=== PATIENT | male | born 1965 | race Caucasian/White ===

== ENCOUNTER 2022-09-26 10:03 | Emergency (ER) | payer BC, SELFPAY ==
[2022-09-26] VITALS (15 sets, daily range): BP systolic 169–202; BP diastolic 97–111; PULSE 70–95; RESP 18–20; TEMP 36.8; O2SAT 90–95; BMI 28.5
--- NOTE | 2022-09-26 11:07 | CRLHL7_ITS ---
For Patients: As a result of the Century Cures Act, medical imaging exams and procedure reports are released immediately into your electronic medical record. You may view this report before your referring provider. If you have questions, please contact your health care provider. INDICATION: Cough TECHNIQUE: Chest 1 view COMPARISON: CT chest 01/01/2017 FINDINGS: The cardiac silhouette is enlarged. No pneumothorax is present. No pleural effusion. Mild degenerative changes. Mild ill-defined densities are present within the left midlung zone and left lung base. The left hemidiaphragm is elevated. IMPRESSION: Elevated left hemidiaphragm, new from the prior study. Mild ill-defined densities within the left midlung zone and left lung base suggesting infiltrates. Dictated by Pablo Vale MD @ 09/26/2022 12:00:39 PM (Electronically Signed)
--- NOTE | 2022-09-26 11:12 | ED_ITS ---
HPI - General Adult General Time Seen by Provider: 11:13 Date Seen: 09/26/22 Chief complaint: Chest Pain Stated complaint: Tightness in chest Time Seen by Provider: 09/26/22 10:30 Source: patient Mode of arrival: ambulatory Limitations: no limitations History of Present Illness HPI narrative: Patient is a 56 year white male with a high calcium score, he has had a cold and cough for the last few days, he feels some intermittent chest tightness at night and cough at night. He feels pretty well during the day. 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 there was noted a year so ago. He has had no fevers chills no bleeding or clotting problems. He has had a cough at night as mention and he has had some respiratory congestion. He has not been tested for COVID or RSV or influenza recently.. No leg swelling or edema no travel Related Data Home Medications Medication Instructions Recorded Confirmed atenolol 50 mg tablet mg 09/26/22 atorvastatin 10 mg tablet mg 09/26/22 azelastine 137 mcg (0.1 %) nasal intranasal 09/26/22 spray aerosol escitalopram oxalate 10 mg tablet mg 09/26/22 fluticasone propionate 50 intranasal 09/26/22 mcg/actuation nasal spray,suspension Previous Rx's Medication Instructions Recorded azithromycin 500 mg tablet 500 mg PO DAILY 7 days #7 tabs 09/26/22 (Zithromax) prednisone 20 mg tablet 20 mg PO BID #10 tabs 09/26/22 Allergies Allergy/AdvReac Type Severity Reaction Status Date / Time penicillin G Allergy Unknown Verified 09/26/22 10:13 Review of Systems Status of ROS: Reports: 6 or more systems reviewed and unremarkable except as noted in History and below [facility] Social History Smoking Status: Current every day smoker What tobacco products do you use: cigarettes Smoking packs per day: 0.5 Smoking cigarettes per day: 10.0 Years smoked: 23 Smoking pack-years: 11.50 Do you use any of these nicotine containing products: None Second hand tobacco smoke exposure: Yes How often do you have a drink containing alcohol: 2-3 times a week How many standard drinks containing alcohol do you have on a typical day: 3 or 4 How often do you have six or more drinks on one occasion: Monthly AUDIT-C Alcohol total score: 6 Non-prescribed substance use: denies use service: No Exam Narrative: Exam Narrative: Objective: Patient's vital signs show elevated blood pressure, he is alert orient x3 very pleasant HEENT is unremarkable Neck is supple Chest clear superiorly but inferiorly at the bases he has some wheezing Heart rhythm regular 2/6 systolic murmur Abdomen soft nontender no masses Extremities are no edema Neurologic nonfocal Skin periphery warm and dry Const: Vital Signs, click to edit/add: Vital Signs - 24 hr 09/26/22 10:07 09/26/22 10:35 09/26/22 11:01 Temperature 98.3 F Pulse Rate 78 Pulse Rate [Right Pulse Oximeter] 95 85 Respiratory Rate 18 20 Blood Pressure Blood Pressure [Ri ght Upper Arm] 202/107 H 182/111 H Pulse Oximetry 95 95 91 Oxygen Delivery Me thod Room Air Room Air 09/26/22 11:02 09/26/22 11:15 09/26/22 11:30 Temperature Pulse Rate 86 80 80 Pulse Rate [Right Pulse Oximeter] Respiratory Rate Blood Pressure 169/97 H Blood Pressure [Ri ght Upper Arm] Pulse Oximetry 91 90 90 Oxygen Delivery Me thod 09/26/22 11:32 09/26/22 11:45 09/26/22 12:00 Temperature Pulse Rate 79 79 76 Pulse Rate [Right Pulse Oximeter] Respiratory Rate Blood Pressure 178/101 H Blood Pressure [Ri ght Upper Arm] Pulse Oximetry 91 94 93 Oxygen Delivery Me thod 09/26/22 12:02 09/26/22 12:15 09/26/22 12:30 Temperature Pulse Rate 73 74 70 Pulse Rate [Right Pulse Oximeter] Respiratory Rate Blood Pressure 170/99 H Blood Pressure [Ri ght Upper Arm] Pulse Oximetry 92 90 92 Oxygen Delivery Me thod 09/26/22 12:32 09/26/22 12:45 09/26/22 13:00 Temperature Pulse Rate 76 71 74 Pulse Rate [Right Pulse Oximeter] Respiratory Rate Blood Pressure 173/100 H Blood Pressure [Ri ght Upper Arm] Pulse Oximetry 94 91 94 Oxygen Delivery Me thod Course Vital Signs Vital signs: Initial Vital Signs Temperature 98.3 F 09/26/22 10:07 Temperature Source Temporal Artery Scan 09/26/22 10:07 Pulse Rate 95 09/26/22 10:07 Pulse Rhythm 09/26/22 10:07 Respiratory Rate 18 09/26/22 10:07 Blood Pressure 202/107 H 09/26/22 10:07 Blood Pressure Mean 138 09/26/22 10:07 Blood Pressure Position Sitting 09/26/22 10:07 Pulse Oximetry 95 09/26/22 10:07 Oxygen Delivery Method 09/26/22 10:07 Vital Signs Temperature 98.3 F 09/26/22 10:07 Pulse Rate 95 09/26/22 10:07 Respiratory Rate 18 09/26/22 10:07 Blood Pressure 202/107 H 09/26/22 10:07 Pulse Oximetry 95 09/26/22 10:07 Oxygen Delivery Method 09/26/22 10:07 Temperature 98.3 F 09/26/22 10:07 Pulse Rate 74 09/26/22 13:00 Respiratory Rate 20 09/26/22 10:35 Blood Pressure 173/100 H 09/26/22 12:32 Pulse Oximetry 94 09/26/22 13:00 Oxygen Delivery Method 09/26/22 10:35 Medical Decision Making MDM Narrative Medical decision making narrative: Patient is a 56 year white male with a viral type upper respiratory infection symptom, but with some chest tightness at night and cough. I would recommend we check COVID/influenza/RSV, labs, EKGs x2, troponin x2, oximetry and air conditioning unit assembler. Patient comfortable assessment and plan disposition pending findings above. At this point will give the patient aspirin, IV Solu-Medrol Patient does have some infiltrates on his chest x-ray by my review consistent with mild pneumonia, will give him Zithromax, his QT is normal and his EKG he has got a normal sinus rhythm EKG by my read, will give him Zithromax for home 500 mg daily for 5 days, rest light activity fluids, return as needed, update his regular doctor in the next couple of days as needed. If his 2nd troponin is negative he will be discharged home Lab Data Labs: Lab Results 09/26/22 09/26/22 09/26/22 Range/Units 10:35 10:37 10:37 WBC 7.50 (4.50-11.00) K/uL RBC 4.05 L (4.30-5.90) m/uL Hgb 14.1 (13.5-17.5) gm/dL Hct 42.0 (37.0-53.0) % MCV 104 H (80-100) fL MCH 35 H (26-34) pg MCHC 34 (32-36) gm/dL RDW Coeff of Torrey 12.3 (11.5-15.5) % Plt Count 220 (140-440) K/uL Neut % (Auto) 73.3 H (42.0-72.0) % Lymph % (Auto) 15.6 L (20-44) % [place] % (Auto) 7.9 (0.0-11.0) % Eos % (Auto) 2.3 (0.0-7.0) % Baso % (Auto) 0.5 (0.0-3.0) % Neut # (Auto) 5.50 (1.7-7.0) K/uL Lymph # (Auto) 1.20 (0.90-2.90) K/uL [place] # (Auto) 0.60 (0.00-0.90) K/UL Eos # (Auto) 0.17 (0.00-0.50) K/uL Baso # (Auto) 0.04 (0.00-0.30) K/uL Diff Slide Review Acceptable Review (Acceptable) Sodium (135-149) mmol/L Potassium (3.6-5.1) mmol/L Chloride (96-114) mmol/L Carbon Dioxide (20-32) mmol/L BUN (7-30) mg/dL Creatinine (0.5-1.5) mg/dL Estimated Creat Clear Estimated GFR ml/min Glucose (60-115) mg/dL Calcium (8.4-10.6) mg/dL Total Bilirubin (0.1-1.5) mg/dL Direct Bilirubin (0.0-0.5) mg/dL AST (12-35) U/L ALT (4-50) U/L Alkaline Phosphatase (40-150) U/L Troponin I (0.01-0.04) ng/mL C-Reactive Protein (0.5-1.0) mg/dL NT-Pro-B Natriuret Pep pg/mL Total Protein (6.0-8.3) g/dL Albumin (3.3-5.0) g/dL SARS-CoV-2 (PCR) Negative SARS-CoV-2 (Negative) Influenza Type A (PCR) Negative PCR FLU A (Negative) Influenza Type B (PCR) Negative PCR FLU B (Negative) RSV (PCR) Negative PCR RSV (Negative) POC Troponin I 0.00 L (0.01-0.04) ng/ml 09/26/22 09/26/22 Range/Units 10:37 12:56 WBC (4.50-11.00) K/uL RBC (4.30-5.90) m/uL Hgb (13.5-17.5) gm/dL Hct (37.0-53.0) % MCV (80-100) fL MCH (26-34) pg MCHC (32-36) gm/dL RDW Coeff of [place] (11.5-15.5) % Plt Count (140-440) K/uL Neut % (Auto) (42.0-72.0) % Lymph % (Auto) (20-44) % [place] % (Auto) (0.0-11.0) % Eos % (Auto) (0.0-7.0) % Baso % (Auto) (0.0-3.0) % Neut # (Auto) (1.7-7.0) K/uL Lymph # (Auto) (0.90-2.90) K/uL [place] # (Auto) (0.00-0.90) K/UL Eos # (Auto) (0.00-0.50) K/uL Baso # (Auto) (0.00-0.30) K/uL Diff Slide Review (Acceptable) Sodium 137 (135-149) mmol/L Potassium 4.7 (3.6-5.1) mmol/L Chloride 104 (96-114) mmol/L Carbon Dioxide 26 (20-32) mmol/L BUN 13 (7-30) mg/dL Creatinine 0.9 (0.5-1.5) mg/dL Estimated Creat Clear 93.83 Estimated GFR 101 ml/min Glucose 103 (60-115) mg/dL Calcium 9.1 (8.4-10.6) mg/dL Total Bilirubin 0.5 (0.1-1.5) mg/dL Direct Bilirubin 0.2 (0.0-0.5) mg/dL AST 53 H (12-35) U/L ALT 55 H (4-50) U/L Alkaline Phosphatase 86 (40-150) U/L Troponin I < 0.01 L (0.01-0.04) ng/mL C-Reactive Protein < 0.5 L (0.5-1.0) mg/dL NT-Pro-B Natriuret Pep 79 pg/mL Total Protein 7.1 (6.0-8.3) g/dL Albumin 4.4 (3.3-5.0) g/dL SARS-CoV-2 (PCR) (Negative) Influenza Type A (PCR) (Negative) Influenza Type B (PCR) (Negative) RSV (PCR) (Negative) POC Troponin I 0.01 (0.01-0.04) ng/ml Discharge Plan Discharge Clinical Impression: Acute chest wall pain, Cough, Pneumonia Patient Disposition: Home, Self-Care Condition: Stable Additional Instructions: Rest, light activity, prednisone as prescribe Zithromax as prescribed, recheck with regular doctor next 48 hours, return to ED sooner problems or concerns Activity Level: Light activity Discharge Diet: Regular Prescriptions: New prednisone 20 mg tablet 20 mg PO BID Qty: 10 0RF azithromycin [Zithromax] 500 mg tablet 500 mg PO DAILY 7 Days Qty: 7 0RF No Action atorvastatin 10 mg tablet Label Comments: TAKE 1 TABLET BY MOUTH EVERYDAY AT BEDTIME fluticasone propionate 50 mcg/actuation spray,suspension INTRANASAL Label Comments: INHALE 2 SPRAYS INTO AFFECTED NOSTRIL(S) ONCE DAILY. atenolol 50 mg tablet Label Comments: TAKE 1 TABLET BY MOUTH EVERY DAY escitalopram oxalate 10 mg tablet Label Comments: TAKE 1 TABLET BY MOUTH EVERY DAY azelastine 137 mcg (0.1 %) aerosol,spray INTRANASAL Label Comments: INHALE 2 SPRAYS INTO AFFECTED NOSTRIL(S) 2 TIMES DAILY. Follow Up/Referrals: Provider,Not a Local [Primary Care Provider] - Stand Alone Forms: [facility] Info Instructions
[2022-09-26 11:25] LABS: Basophils Absolute Auto 0.04 K/uL (0.00-0.30); Basophils Percent Auto 0.5 % (0.0-3.0); Eosinophils Absolute Auto 0.17 K/uL (0.00-0.50); Eosinophils Percent Auto 2.3 % (0.0-7.0); Hemoglobin* 14.1 gm/dL (13.5-17.5); Immature Granulocytes Abs Auto 0.03 K/uL (0.00-0.30); Immature Granulocytes Pct Auto 0.4 %; Lymphocytes Percent Auto 15.6 % (20-44); Mean Corpuscular HGB Conc 34 gm/dL (32-36); Mean Corpuscular Hemoglobin 35 pg (26-34); Mean Corpuscular Volume 104 fL (80-100); Monocytes Percent Auto 7.9 % (0.0-11.0); Neutrophils Percent Auto 73.3 % (42.0-72.0); Platelet Count* 220 K/uL (140-440); RDW Coefficient of Variation % 12.3 % (11.5-15.5); Red Blood Count 4.05 m/uL (4.30-5.90)
[2022-09-26 11:29] LABS: Slide Review Reflex Yes
[2022-09-26 11:46] LABS: Albumin* 4.4 g/dL (3.3-5.0); Chloride* 104 mmol/L (96-114)
[2022-09-26 11:47] LABS: Potassium* 4.7 mmol/L (3.6-5.1); Sodium* 137 mmol/L (135-149)
[2022-09-26 11:49] LABS: Creatinine* 0.9 mg/dL (0.5-1.5); Est. Creatinine Clearance* 93.83; Estimated Glomerular Filt Rate 101 ml/min
[2022-09-26 11:50] LABS: Alanine Aminotransferase* 55 U/L (4-50); Alkaline Phosphatase* 86 U/L (40-150); Aspartate Amino Transferase* 53 U/L (12-35); Bilirubin Direct* 0.2 mg/dL (0.0-0.5); Bilirubin Total* 0.5 mg/dL (0.1-1.5); Blood Urea Nitrogen* 13 mg/dL (7-30); Calcium* 9.1 mg/dL (8.4-10.6); Carbon Dioxide* 26 mmol/L (20-32); Glucose* 103 mg/dL (60-115); Total Protein* 7.1 g/dL (6.0-8.3)
[2022-09-26] MEDS: ASPIRIN 81 MG TAB.CHEW 324 MG PO (11:50)
[2022-09-26] MEDS: METHYLPREDNISOLONE SOD SUCC 62.5 MG/ML (125) 125 MG IVP (11:51)
[2022-09-26 11:55] LABS: C Reactive Protein* < 0.5 mg/dL (0.5-1.0)
[2022-09-26 12:00] LABS: PCR FLU A Negative PCR FLU A (Negative); PCR FLU B Negative PCR FLU B (Negative); PCR RSV Negative PCR RSV (Negative)
[2022-09-26 12:04] LABS: SARS PCR* Negative SARS-CoV-2 (Negative)
[2022-09-26 12:06] LABS: NT Pro B Type NatriureticPept* 79 pg/mL; Troponin I* < 0.01 ng/mL (0.01-0.04)
[2022-09-26 13:10] LABS: Troponin, Point-of-Care* 0.01 ng/ml (0.01-0.04)
[2022-09-26] MEDS: AZITHROMYCIN 250 MG TABLET 500 MG PO (13:18)
[2022-09-26 14:45] LABS: Slide Review Acceptable Review (Acceptable)
== END 2022-09-26 13:23 | disposition home or self-care (01) ==
PROVIDERS: Emergency Provider Family Medicine
DX: R07.89 Other chest pain (principal); J18.9 Pneumonia, unspecified organism
CPT/HCPCS: 36415; 71045; 80048; 80076; 83880; 84484; 85025; 86140; 87502; 87634; 87635; 93005; 94761; 96374; 99284; 99285; A9270; J2930

== ENCOUNTER 2024-07-23 12:22 | Outpatient (CLI) | payer BC, SELFPAY | END 2024-07-23 12:23 | disposition home or self-care (01) | PROVIDERS: Visit Provider Physician Assistant Medical | DX: E87.5 Hyperkalemia (principal); Z12.5 Encounter for screening for malignant neoplasm of prostate | CPT/HCPCS: 84132; G0103 ==

== ENCOUNTER 2025-09-24 09:37 | Outpatient (CLI) | payer BC, SELFPAY | END 2025-09-24 09:38 | disposition home or self-care (01) | LOC: NFLDREF 09-29 08:06 | PROVIDERS: PCP Physician Assistant Medical; Referring Provider Physician Assistant Medical; Visit Provider Physician Assistant Medical | DX: I10 Essential (primary) hypertension (principal); E78.2 Mixed hyperlipidemia; F41.9 Anxiety disorder, unspecified; Z13.9 Encounter for screening, unspecified; Z00.00 Encounter for general adult medical examination without abnormal findings | CPT/HCPCS: 80053; 80061; 84443; G0103 ==